=== PATIENT | male | born 2000 | race Caucasian/White ===

== ENCOUNTER 2025-01-02 22:00 | Inpatient (IN) ==
[2025-01-02] MEDS: FAMOTIDINE 20MG IV PUSH 20 MG/5 ML SYR IV STA (22:10)
[2025-01-02] MEDS: SODIUM CHLORIDE 0.9% 1,000 ML IV ONE ×2 (22:11→23:13)
[2025-01-02] MEDS: ALBUT/IPRATROP 3MG/0.5MG NEB 3 ML VIAL NEB STA ×2 (22:11→22:26)
[2025-01-02 22:21] LABS: Base Excess VBG -0.6 mEq/L; HCO3 VBG 25 mmol/L; Oxygen Saturation VBG 81.1 %; PCO2 VBG 43 mmHg (38-50); PO2 VBG 51 mmHg; pH VBG 7.37 (7.36-7.41)
[2025-01-02] MEDS: FAMOTIDINE 20MG/5ML IV PUSH IV ONE (23:09)
--- NOTE | 2025-01-03 00:33 | XRay Report ---
Exam(s): XR CXR 1 VIEW EXAM: XR Chest, 1 View CLINICAL HISTORY: Reason for exam: sob. TECHNIQUE: Frontal view of the chest. COMPARISON: No relevant prior studies available. FINDINGS: Lungs: Unremarkable. No acute infiltration, atelectasis or mass. Pleural space: Unremarkable. No pneumothorax or pleural fluid. Heart: Unremarkable. No cardiomegaly. Mediastinum: Unremarkable. Normal mediastinal contour. Bones/joints: No acute findings. IMPRESSION: Negative chest x-ray. Electronically signed by: Goldy Villalta MD 01/03/25 00:32 AM
--- NOTE | 2025-01-03 01:35 | Emergency Department Note ---
History of Present Illness General Chief complaint: Allergic Reaction Stated complaint: ANAPHYLAXIS Time Seen by Provider: 01/02/25 22:01 History of Present Illness Provider complaint: allergic reaction, hives and facial swelling Onset (ago): minute(s) 30 Exposure: food (Chicken wings with peanut sauce) Known history of allergy to: Peanut Symptoms: rash, itching, facial swelling, lip swelling and difficulty breathing Treatment prior to arrival: benadryl (50 mg IV), epinephrine (0.3 mg IM x 2), steroids (Solu-Medrol 125 mg IV push) and IV fluids Home Medications Medication Instructions Recorded Confirmed Type No Known Home Medications 03/07/22 03/07/22 History Allergies Allergy/AdvReac Type Severity Reaction Status Date / Time No Known Allergies Allergy Unverified 03/07/22 08:51 Past Med/Surg History Problem List (Updated 01/03/25 @ 01:40 by Carter Ang MD) Anaphylaxis (Acute) Medical History Asthma Atopic dermatitis Family History Other Family history non-contributory Social History Smoking Status: Never smoker Preferred Language: Hungarian Feels Safe at Home: Yes Physical Exam Vital Signs Vital Signs - 24 hr 01/02/25 22:02 01/02/25 22:28 01/02/25 22:28 Temperature 37 C Temperature Source Axillary Pulse Rate 105 H 112 H Pulse Rate [Left Finger] Pulse Rhythm Pulse Rhythm [Left Finger] Pulse Strength [Left Finger] Respiratory Rate 22 Respiratory Effort / Characteristics Labored Respiratory Depth Deep Respiratory Pattern Regular Blood Pressure 138/81 Blood Pressure [Left Arm] Blood Pressure Mean 100 Blood Pressure Mean [Left Arm] Blood Pressure Position [Left Arm] Pulse Oximetry 100 Oxygen Delivery Method Non-rebreather Non-rebreather Oxygen Flow Rate 10 15 Sepsis Recent Fever Within 48 Hours No Sepsis New/Unexplained Change in Mental Status No Sepsis Action Taken by Nursing Physician Notified 01/02/25 23:34 01/02/25 23:34 01/02/25 23:34 Temperature Temperature Source Pulse Rate 84 Pulse Rate [Left Finger] Pulse Rhythm Regular Pulse Rhythm [Left Finger] Pulse Strength [Left Finger] Respiratory Rate 17 17 Respiratory Effort / Characteristics Non-Labored Spontaneous Respiratory Depth Normal Respiratory Pattern Regular Blood Pressure Blood Pressure [Left Arm] 94/47 L Blood Pressure Mean Blood Pressure Mean [Left Arm] 62 Blood Pressure Position [Left Arm] Lying Pulse Oximetry 98 98 Oxygen Delivery Method Room Air Room Air Room Air Oxygen Flow Rate Sepsis Recent Fever Within 48 Hours Sepsis New/Unexplained Change in Mental Status Sepsis Action Taken by Nursing 01/03/25 01:00 Temperature Temperature Source Pulse Rate Pulse Rate [Left Finger] 72 Pulse Rhythm Pulse Rhythm [Left Finger] Regular Pulse Strength [Left Finger] Normal Respiratory Rate 13 Respiratory Effort / Characteristics Non-Labored Spontaneous Respiratory Depth Normal Respiratory Pattern Regular Blood Pressure Blood Pressure [Left Arm] 123/54 L Blood Pressure Mean Blood Pressure Mean [Left Arm] 77 Blood Pressure Position [Left Arm] Lying Pulse Oximetry 96 Oxygen Delivery Method Room Air Oxygen Flow Rate Sepsis Recent Fever Within 48 Hours Sepsis New/Unexplained Change in Mental Status Sepsis Action Taken by Nursing Physical Exam HENT: Exam performed. - Head: Normocephalic and atraumatic. - Mouth: No lip or tongue swelling. No submental swelling. No uvular edema. EYES: Conjunctivae and EOM are normal. Right eye exhibits no discharge. Left eye exhibits no discharge. No scleral icterus. NECK: Normal range of motion. Neck supple. No JVD present. CV: Tachycardic rate, regular rhythm, normal heart sounds and intact distal pulses. There is no peripheral edema. Palpable radial pulses bue. PULM/CHEST: Expiratory wheezes bilaterally NEURO: Motor and sensation grossly intact. SKIN: Urticaria of the face anterior chest back bilateral upper extremities Course Course 2200: The patient was evaluated in room B6. A complete history and physical exam was performed Cardiac monitoring: An order was placed for continuous cardiac monitoring. The monitor shows a rate of 110 with sinus rhythm interpreted by me IV Pepcid, bronchodilators, and IV fluids ordered for the patient. 2219: Vital signs stable. Wheezing improved status post DuoNeb. Patient did eat chicken wings with his hands. Patient was instructed to wash his hands with soap and water to avoid any rebound anaphylaxis from reexposure to peanut sauce that might be still on his hands. 2254: Vital signs stable. No respiratory distress. Lungs are clear to auscultation status post second DuoNeb. Patient will be admitted to the hospitalist team. Administered Medications Discontinued Medications Albuterol (Albut/Ipratrop 3mg/0.5mg Neb 3 Ml Vial) 3 ml NEB NOW STA; Protocol Stop: 01/02/25 22:07 Last Admin: 01/02/25 22:11 Dose: 3 ml Documented By: SHY Albuterol (Albut/Ipratrop 3mg/0.5mg Neb 3 Ml Vial) 3 ml NEB NOW STA; Protocol Stop: 01/02/25 22:07 Last Admin: 01/02/25 22:26 Dose: 3 ml Documented By: SHY Famotidine (Famotidine 20mg/5ml Iv Push) Confirm Administered Dose 20 mg IV .STK-MED ONE Stop: 01/02/25 22:05 Last Admin: 01/02/25 23:09 Dose: Not Given Documented By: SHY Sodium Chloride (Nss) 1,000 mls @ 999 mls/hr IV .Q1H1M ONE Stop: 01/02/25 23:05 Last Infusion: 01/02/25 23:00 Dose: Infused Documented By: Admin: 01/02/25 22:11 Dose: 999 mls/hr Documented By: SHY Famotidine (Pepcid 20mg Iv Push) 20 mg in 5 mls @ 2.5 mls/min IV NOW STA Stop: 01/02/25 23:01 Last Admin: 01/02/25 22:10 Dose: 2.5 mls/min Documented By: SHY Sodium Chloride (Nss) 1,000 mls @ 999 mls/hr IV .Q1H1M ONE Stop: 01/03/25 00:09 Last Infusion: 01/03/25 00:49 Dose: Infused Documented By: Admin: 01/02/25 23:13 Dose: 999 mls/hr Documented By: SHY Medical Decision Making Laboratory Data Attestation: I reviewed the patient's lab results. Lab Results 01/02/25 Range/Units 22:13 VBG pH 7.37 (7.36-7.41) VBG pCO2 43 (38-50) mmHg VBG pO2 51 mmHg VBG HCO3 25 mmol/L VBG O2 Saturation 81.1 % VBG Base Excess -0.6 mEq/L Imaging Data Chest x-ray: Radiologist's impression: Chest X-Ray 01/02/25 22:05 Exam(s): XR CXR 1 VIEW EXAM: XR Chest, 1 View CLINICAL HISTORY: Reason for exam: sob. TECHNIQUE: Frontal view of the chest. COMPARISON: No relevant prior studies available. FINDINGS: Lungs: Unremarkable. No acute infiltration, atelectasis or mass. Pleural space: Unremarkable. No pneumothorax or pleural fluid. Heart: Unremarkable. No cardiomegaly. Mediastinum: Unremarkable. Normal mediastinal contour. Bones/joints: No acute findings. IMPRESSION: Negative chest x-ray. Electronically signed by: Goldy Villalta MD 01/03/25 00:32 AM MDM Narrative MDM Narrative: 2200: The patient was evaluated in room B6. A complete history and physical exam was performed Cardiac monitoring: An order was placed for continuous cardiac monitoring. The monitor shows a rate of 110 with sinus rhythm interpreted by sc IV Pepcid, bronchodilators, and IV fluids ordered for the patient. 0: Vital signs stable. Wheezing improved status post DuoNeb. Patient did eat chicken wings with his hands. Patient was instructed to wash his hands with soap and water to avoid any rebound anaphylaxis from reexposure to peanut sauce that might be still on his hands. 2255: Vital signs stable. No respiratory distress. Lungs are clear to auscultation status post second DuoNeb. Patient will be admitted to the hospitalist team. Impression & Plan Anaphylaxis Discharge Plan Visit Data Chief Complaint: Allergic Reaction Stated Complaint: ANAPHYLAXIS ED Provider: Carter Ang Discharge Problem: Anaphylaxis Patient Disposition: Admitted As Inpatient Condition: Fair Forms Stand Alone Forms: ITYZ Prescriptions Prescriptions: No Action No Known Home Medications Referrals Referrals: PCP,NO [Primary Care Provider] -
--- NOTE | 2025-01-03 04:13 | History & Physical Report ---
Date of Service January 03, 2025 Assessment & Plan (1) Anaphylaxis: Plan: 24-year-old male with past medical history significant for childhood asthma, peanut allergy comes because of anaphylaxis reaction. Patient was out and eating. He ordered chicken wings. He thought they were spicy but they had peanut butter. After eating he realized they had peanut butter. Called EMS. He developed severe reaction. His face was swollen. Rash all over the body. His nose and throat were closing. He was feeling short of breath. Was feeling dizzy and nauseous. As per ER EMS gave 2 dose of epinephrine, IV steroid and Benadryl. In the ER patient was still wheezing and was given DuoNebs and Pepcid. Currently symptoms improved. Currently patient is mostly back to normal. Has some mild sore throat and mild abdominal discomfort. No dizziness currently. Vision is okay. No runny nose. Afebrile. Currently denies any chest pain or shortness of breath. No rash currently. No cough. Normal bladder movements. Hemodynamics are okay. Anaphylaxis Patient is allergic to peanuts Ate chicken wings with peanut butter Received 2 dose of epinephrine, IV methylprednisolone 125mg and iv 50mg Benadryl by EMS In the ER received DuoNebs and Pepcid as he was still wheezy Currently mostly back to baseline Will continue with p.o. prednisone, Zyrtec, Pepcid and Benadryl as needed Close monitoring daily Abnormal EKG Asymptomatic Will follow troponin and repeat EKG DVT prophylaxis SCDs Disposition Telemetry Full code. History of Present Illness Chief Complaint: Anaphylaxis Primary Care Provider: NO PCP 24-year-old male with past medical history significant for childhood asthma, peanut allergy comes because of anaphylaxis reaction. Patient was out and eating. He ordered chicken wings. He thought they were spicy but they had peanut butter. After eating he realized they had peanut butter. Called EMS. He developed severe reaction. His face was swollen. Rash all over the body. His nose and throat were closing. He was feeling short of breath. Was feeling dizzy and nauseous. As per ER EMS gave 2 dose of epinephrine, IV steroid and Benadryl. In the ER patient was still wheezing and was given DuoNebs and Pepcid. Currently symptoms improved. Currently patient is mostly back to normal. Has some mild sore throat and mild abdominal discomfort. No dizziness currently. Vision is okay. No runny nose. Afebrile. Currently denies any chest pain or shortness of breath. No rash currently. No cough. Normal bladder movements. Hemodynamics are okay. Past medical history. As mentioned above. Past surgical history. Denies any surgeries. Social history. Denies smoking. Alcohol occasional. No drug use. Family history. Denies any family history. Allergies Allergy/AdvReac Type Severity Reaction Status Date / Time peanut Allergy Severe Anaphylaxis Verified 01/03/25 04:10 Home Medications Medication Instructions Recorded Confirmed Type No Known Home Medications 03/07/22 03/07/22 History Past Med/Surg History Problem List (Updated 01/03/25 @ 01:40 by Carter Ang MD) Anaphylaxis (Acute) Medical History Asthma Atopic dermatitis Family History Other Family history non-contributory Social History Smoking Status: Never smoker Do You Dip or Chew Tobacco: Yes (Zyn pouches); Tobacco Cessation Education Requested by Patient: No Hx Alcohol Use: No Hx Substance Use: No Preferred Language: Cuban Communication Ability: Effective Book Cleaner Required: No Beliefs That Will Affect Care: None Current Living Situation: Family Other Information That Helps Us Care for You: No Feels Safe at Home: Yes Safety Concerns: Feels Safe At This Time Assistive Devices: None Review of Systems Review of Systems: All systems reviewed & are unremarkable except as noted in HPI & below Physical Exam Physical Exam: General- Not in distress Head- atraumatic Eyes- PERRL. ENT- oropharynx clear Neck- supple, no JVD. Lungs- clear to auscultation no wheezing or crackles Heart- regular rate and rhythm; no murmur, no gallop. Abdomen- normal bowel sounds, soft, nontender, no distension Extremities- no pretibial edema, no erythema seen Neuro- alert, oriented PERRL, no facial palsy; no dysarthria; moves extremities Results & Data Results & Data Vital Signs (Past 12 Hours) Vital Signs Temp Pulse Pulse Resp BP BP Pulse Ox 01/03/25 01:57 71 01/03/25 01:00 72 13 123/54 L 96 01/02/25 23:34 84 17 98 01/02/25 23:34 17 94/47 L 98 01/02/25 23:34 01/02/25 22:28 37 C 112 H 22 138/81 100 01/02/25 22:28 01/02/25 22:02 105 H O2 Del Method O2 Flow Rate 01/03/25 01:57 01/03/25 01:00 Room Air 01/02/25 23:34 Room Air 01/02/25 23:34 Room Air 01/02/25 23:34 Room Air 01/02/25 22:28 Non-rebreather 15 01/02/25 22:28 Non-rebreather 10 01/02/25 22:02 Diagnostic Findings Laboratory Results VBG pH 7.37 (7.36-7.41) 01/02/25 22:13 VBG pCO2 43 mmHg (38-50) 01/02/25 22:13 VBG pO2 51 mmHg 01/02/25 22:13 VBG HCO3 25 mmol/L 01/02/25 22:13 VBG O2 Saturation 81.1 % 01/02/25 22:13 VBG Base Excess -0.6 mEq/L 01/02/25 22:13 Impressions Chest X-Ray 01/02/25 22:05 Exam(s): XR CXR 1 VIEW EXAM: XR Chest, 1 View CLINICAL HISTORY: Reason for exam: sob. TECHNIQUE: Frontal view of the chest. COMPARISON: No relevant prior studies available. FINDINGS: Lungs: Unremarkable. No acute infiltration, atelectasis or mass. Pleural space: Unremarkable. No pneumothorax or pleural fluid. Heart: Unremarkable. No cardiomegaly. Mediastinum: Unremarkable. Normal mediastinal contour. Bones/joints: No acute findings. IMPRESSION: Negative chest x-ray. Electronically signed by: Goldy Villalta MD 01/03/25 00:32 AM ECG Additional Comments: ECG. Normal sinus rhythm rate of 91. Septal infarct age determinate QTc 432 Code Status & VTE Plan VTE Prophylaxis Plan VTE Prophylaxis will be ordered: Yes
[2025-01-03] MEDS ORDERED: ACETAMINOPHEN 325 MG TAB PO PRN (05:53)
[2025-01-03] MEDS ORDERED: diphenhydrAMINE 50 MG/ML VIAL IV PRN (05:53)
[2025-01-03 06:11] VITALS: RESP 18
[2025-01-03 07:37] VITALS: BP 122/66; PULSE 83; TEMP 97.9; O2SAT 99
[2025-01-03] MEDS: CETIRIZINE HCL 10 MG TABLET PO SCH (07:42)
[2025-01-03] MEDS: predniSONE 20 MG TAB PO SCH (07:42)
[2025-01-03 08:13] LABS: Hematocrit (blood only) 43.8 % (42.0-52.0); Hemoglobin 15.4 g/dl (14.0-18.0); Mean Corpuscular Hemoglobin 29.1 pg (25.0-34.0); Mean Corpuscular Volume 82.6 fL (80.0-100.0); Platelet Count 223 K/uL (130-400); RDW Standard Deviation 37.2 fL (36.4-46.3); Red Blood Count 5.30 M/uL (4.70-6.10); White Blood Count 8.33 K/ul (4.8-10.8)
[2025-01-03 08:29] LABS: Anion Gap 9 (3-11); Blood Urea Nitrogen 14 mg/dl (6-23); Calcium 9.9 mg/dl (8.6-10.3); Carbon Dioxide 25 mmol/L (21-32); Chloride 109 mmol/L (98-107); Creatinine Clr Calc Pharmacy 108.3 ml/min; Magnesium 1.8 mg/dl (1.7-2.4); Potassium 3.9 mmol/L (3.5-5.1); Sodium 143 mmol/L (136-145)
[2025-01-03 08:32] LABS: Anion Gap 9.0 (3-11); Blood Urea Nitrogen 14.0 mg/dl (6-23); Calcium 9.8 mg/dl (8.6-10.3); Carbon Dioxide 24.0 mmol/L (21-32); Chloride 109.0 mmol/L (98-107); Creatinine Clr Calc Pharmacy 111.4 ml/min; Glucose 161.0 mg/dl (70-99(Fasting)); Magnesium 1.7 mg/dl (1.7-2.4); Potassium 4.0 mmol/L (3.5-5.1); Sodium 142.0 mmol/L (136-145)
[2025-01-03] MEDS: FAMOTIDINE 20 MG TAB PO SCH (08:33)
[2025-01-03 08:47] LABS: Immature Granulocytes # (auto) 0.02 K/uL (0.01-0.20); Immature Granulocytes % (auto) 0.2 %; Toxic Vacuolation 1+
--- NOTE | 2025-01-03 11:48 | Discharge Summary ---
Discharge Summary Date of Service January 03, 2025 Principal Dx & Hospital Course #1 = Principal Diagnosis (1) Anaphylaxis due to peanuts: Patient is a 24y/o M with PMHx significant for childhood asthma and severe peanut allergy who presented to the ED overnight with anaphylaxis. Patient accidentally ate a chicken wing which had a peanut-based sauce on it [employer]. Developed severe reaction including facial swelling, diffuse pruritic rash and airway edema resulting in breathing difficulties. Called EMS. Received epinephrine 0.3mg IM x 2, 50mg IV Benadryl, 125mg IV Solu-Medrol push and IVF en route to ED with significant improvement. Still will some wheezing upon arrival to ED which resolved with Duoneb and IV Pepcid administration. Did not require any additional epinephrine in the ED. Patient feeling much improved this morning on examination. Endorses complete resolution of presenting complaints. Saturating well on RA. Patient visiting from [place], [place] for the [employer] game this evening. Was started on po prednisone this AM, 60mg. Will continue 6- day prednisone taper course (60mg x 1 more day, 40mg x 2 days then 20mg x 2 days) as well as 1-week course of Zyrtec and Pepcid. These prescriptions were sent for pickup. Patient has 2 EpiPens with him currently in [employer]. His significant other also has 1 EpiPen with her at all times. Offered to send additional EpiPens for pickup but patient mentioned he has an additional supply of them at home as well. Patient also has Benadryl available with him to use as needed. (2) Abnormal finding on EKG: Patient's second EKG noted sinus rhythm with marked sinus arrhythmia but was otherwise normal. Troponin x 1 checked which came back negative. Patient without any cardiopulmonary complaints on examination this morning. Telemetry reviewed. Remained in normal sinus rhythm. No further testing required at this time. Disposition: Patient being DC in stable condition, planning on returning home tomorrow after the game. Patient seen in collaboration with Dr. Purvis. Please see addendum. I spent a total of 46 minutes coordinating, documenting, and providing care for this patient excluding time spent in the performance of separately billed services or time spent by another provider/QHP. This included personally reviewing all current laboratories and imaging studies, medical reconciliation, outpatient chart review and discussion with specialists. This chart was completed in part utilizing Speech Voice Recognition Software. Grammatical errors, random word insertions, pronoun errors, and incomplete sentences are an occasional consequence of this system due to software limitations, ambient noise, and hardware issues. Any formal questions or concerns about the content, text, or information contained within the body of this dictation should be directly addressed to the provider for clarification. Notes For Next Care Provider Medication Changes From Visit Prednisone taper, Pepcid, Zyrtec Admission HPI Per Admitting Provider 24-year-old male with past medical history significant for childhood asthma, peanut allergy comes because of anaphylaxis reaction. Patient was out and eating. He ordered chicken wings. He thought they were spicy but they had peanut butter. After eating he realized they had peanut butter. Called EMS. He developed severe reaction. His face was swollen. Rash all over the body. His nose and throat were closing. He was feeling short of breath. Was feeling dizzy and nauseous. As per ER EMS gave 2 dose of epinephrine, IV steroid and Benadryl. In the ER patient was still wheezing and was given DuoNebs and Pepcid. Currently symptoms improved. Currently patient is mostly back to normal. Has some mild sore throat and mild abdominal discomfort. No dizziness currently. Vision is okay. No runny nose. Afebrile. Currently denies any chest pain or shortness of breath. No rash currently. No cough. Normal bladder movements. Hemodynamics are okay. Past medical history. As mentioned above. Past surgical history. Denies any surgeries. Social history. Denies smoking. Alcohol occasional. No drug use. Family history. Denies any family history. Admission Exam Per Admitting Provider General- Not in distress Head- atraumatic Eyes- PERRL. ENT- oropharynx clear Neck- supple, no JVD. Lungs- clear to auscultation no wheezing or crackles Heart- regular rate and rhythm; no murmur, no gallop. Abdomen- normal bowel sounds, soft, nontender, no distension Extremities- no pretibial edema, no erythema seen Neuro- alert, oriented PERRL, no facial palsy; no dysarthria; moves extremities Discharge Exam General: WD/WN, vitals as above, NAD, sitting up at side of bed, A+Ox3 HEENT: Normocephalic, atraumatic, oropharynx clear Respiratory: Normal respiratory effort, CTAB Cardiovascular: RRR, normal peripheral pulses, no BLE edema Extremities/Musculoskeletal: No cyanosis or clubbing, extremities motor strength intact, moves all extremities, no rash/hives Neurologic: No overt focal deficits, CN's II-XI not formally tested but appear grossly intact bilaterally Updated Medication List Medication Instructions Recorded Confirmed Type No Known Home Medications 03/07/22 03/07/22 History cetirizine 10 mg tablet 10 mg PO QAM 6 days #6 tabs 01/03/25 Rx famotidine 20 mg tablet 20 mg PO BID #13 tabs 01/03/25 Rx prednisone 10 mg tablet See Taper PO DAILY #18 tabs 01/03/25 Rx Hospital Stay Data Consultations 01/02/25 22:54 ED Decision to Admit Stat Pending Results Patient Have Any Pending Studies at Discharge: No Discharge Instructions Given to Patient (Per Discharging Provider) Continue prednisone taper course beginning tomorrow morning, 01/04/2025, as prescribed. Also continue taking both cetirizine and famotidine as prescribed. These medications have been sent to [facility] at [address] [place] [address] in [place], [place]. Total Time Total Time Spent Total Time Spent (In Minutes): 46 Supervising Physician Co-Signing Physician Notes Patient admitted with anaphylactic reaction. He reports significant improvement in the symptoms. No swelling, stridor, shortness of breath. Physical examination does not show any facial swelling. He is speaking clearly. Discharged with instruction to follow-up with PCP. I have reviewed the advanced practitioner's documentation, and I agree with, and take responsibility for the plan of care I spent a total of 20 minutes coordinating, documenting, and providing care for this patient excluding time spent in the performance of separately billed services. All of the aforementioned completed while collaborating with the assigned advanced practitioner for a full treatment plan
--- NOTE | 2025-01-03 21:53 | Electrocardiogram Report ---
Test Reason : Blood Pressure : */* mmHG Vent. Rate : 91 BPM Atrial Rate : 91 BPM P-R Int : 182 ms QRS Dur : 88 ms QT Int : 352 ms P-R-T Axes : 66 80 30 degrees QTcB Int : 432 ms Normal sinus rhythm Septal infarct , age undetermined Abnormal ECG No previous ECGs available Confirmed by Bernardo Zacarias ([id number]) on 01/03/2025 9:53:12 PM Referred By: REFERRED SELF Confirmed By: Bernardo Zacarias
--- NOTE | 2025-01-03 21:54 | Electrocardiogram Report ---
Test Reason : Blood Pressure : */* mmHG Vent. Rate : 67 BPM Atrial Rate : 67 BPM P-R Int : 178 ms QRS Dur : 88 ms QT Int : 404 ms P-R-T Axes : 33 74 39 degrees QTcB Int : 426 ms Sinus rhythm with marked sinus arrhythmia Otherwise normal ECG When compared with ECG of 02-Jan-2025 22:17, No significant change was found Confirmed by Bernardo Zacarias ([id number]) on 01/03/2025 9:53:27 PM Referred By: REFERRED SELF Confirmed By: Bernardo Zacarias
--- NOTE | 2025-01-03 21:55 | Electrocardiogram Report ---
Test Reason : Blood Pressure : */* mmHG Vent. Rate : 63 BPM Atrial Rate : 63 BPM P-R Int : 176 ms QRS Dur : 86 ms QT Int : 412 ms P-R-T Axes : 27 67 29 degrees QTcB Int : 421 ms Sinus rhythm with marked sinus arrhythmia Otherwise normal ECG When compared with ECG of 03-Jan-2025 06:05, No significant change was found Confirmed by Bernardo Zacarias ([id number]) on 01/03/2025 9:54:31 PM Referred By: REFERRED SELF Confirmed By: Bernardo Zacarias
== END 2025-01-03 10:19 | disposition home or self-care (01) | DRG 916 ==
LOC: ED 22:00 → 2S 01-03 04:10